=== PATIENT | female | born 1970 | race Caucasian/White ===

== ENCOUNTER 2018-10-20 21:23 | Inpatient (IN) ==
[2018-10-20 21:51] LABS: BILIRUBIN URINE NEGATIVE (NEGATIVE); BLOOD URINE NEGATIVE (NEGATIVE); CLARITY CLEAR (CLEAR); COLOR YELLOW; GLUCOSE URINE NEGATIVE (NEGATIVE); KETONE URINE NEGATIVE (NEGATIVE); LEUKOCYTES URINE 1+ (NEGATIVE); NITRITE URINE NEGATIVE (NEGATIVE); PROTEIN URINE NEGATIVE (NEGATIVE); SP GRAVITY URINE 1.005; UROBILINOGEN URINE NORMAL
[2018-10-20 21:54] LABS: URINE SOURCE CLEAN CATCH
[2018-10-20 21:57] LABS: URINE BACTERIA NEGATIVE /HFP; URINE CAST NONE SEEN /LPF; URINE CRYSTAL NONE SEEN /HPF; URINE EPITHELIAL CELLS <10 /HPF (<10); URINE RBC <10 /HPF (<10); URINE WBC <10 /HPF (<10); URINE YEAST NONE SEEN /HPF
[2018-10-20 22:55] LABS: BASO# 0.09 X1000 (0.0-0.2); BASO% 1.8 % (0.0-0.8); EOS# 0.01 X1000 (0.0-0.7); EOS% 0.2 % (0.0-10.0); HEMATOCRIT 39.8 % (37.0-47.0); HEMOGLOBIN 13.6 g/dL (12.0-16.0); LYMPH# 1.57 X1000 (1.2-3.4); LYMPH% 31.9 % (20.5-51.1); MCH 30.2 PG (27-31); MCHC 34.2 g/dL (33-37); MCV 88.2 FL (81-99); MONO# 0.76 X1000 (0.11-0.59); MONO% 15.4 % (1.7-9.3); MPV 10.2 FL (7.4-10.4); NEUT# 2.49 X1000 (1.4-6.5); NEUT% 50.7 % (42.2-75.2); PLT 214 X1000 (130-400); RBC 4.51 XMIL (4.2-5.4); RDW 16.7 % (11.5-14.5); WBC 4.92 X1000 (4.8-10.8)
[2018-10-20 23:08] LABS: AGAP 16; ALBUMIN 4.3 g/dL (3.5-5.0); ALKALINE PHOSPHATASE 82 U/L (32-104); BUN 9 mg/dL (8-22); CALCIUM 8.8 mg/dL (8.8-10.2); CHLORIDE 98 mmol/L (98-107); COSMO 276; CREATININE 0.6 mg/dL (0.5-0.9); ESTIMATED GFR > 60; GLUCOSE 88 mg/dL (70-104); GOT 174 U/L (10-30); GPT 80 U/L (10-36); POTASSIUM 3.2 mmol/L (3.5-5.1); SODIUM 139 mmol/L (136-145); TCO2 25 mmol/L (25-35); TOTAL PROTEIN 7.8 g/dL (6.3-8.3)
[2018-10-20 23:13] LABS: LIPASE 1534 U/L (13-60)
[2018-10-21] MEDS ORDERED: NS 1,000 ML IV ONE (00:18)
[2018-10-21] MEDS ORDERED: CATAPRES PO ONE (00:21)
[2018-10-21] MEDS ORDERED: LR 1,000 ML IV ONE ×2 (00:24→00:27)
--- NOTE | 2018-10-21 00:27 | PROVIDER DOCUMENTATION ---
This chart was entered by Fausto Medellin Scribe, acting as scribe for Dolly Lyons CRNP. HPI-Abdominal Pain/GI Problem - General Chief Complaint: Abdominal Pain Stated Complaint: BP PROBLEMS Time Seen by Provider: 10/20/18 23:37 Source: patient Allergies/Adverse Reactions: Patient Allergies Allergy/AdvReac Type Severity Reaction Status Date / Time No Known Allergies Allergy Verified 07/22/17 11:18 Home Medications: Home Medication List Medication Instructions Recorded Confirmed Last Taken Type Butalbital/APAP/Caffeine [Fioricet] 1 each PO Q4H PRN PRN #20 tablet 08/01/17 Unknown Rx Duloxetine [Cymbalta] 60 mg PO DAILY 08/01/17 08/01/17 Unknown History LISINOpril [Prinivil] 10 mg PO DAILY 08/01/17 08/01/17 Unknown History Lorazepam [Ativan] 0.5 mg PO QHS 08/01/17 08/01/17 Unknown History Omeprazole [Prilosec] 40 mg PO 08/01/17 Unknown History Potassium Chloride 10 meq PO DAILY #90 tablet.er 08/01/17 Unknown Rx - History of Present Illness-ABD Nature of Presenting Problems: Pt is a 48 y/o F presents to the ED with epigastric pain into her back with some nausea for a week. She report a lack of appetite. She reports drinking daily. Abdominal Pain Onset Location: reports: epigastric Pain Radiation: reports: back Quality of Pain: reports: aching Severity in ED: reports: moderate, severe Onset/Duration: reports: 1 week ago Timing: reports: still present Activities at Onset: reports: none Exposure to sick contacts?: No Modifying Factors: improves with: nothing Associated Symptoms: reports: back/neck pain, nausea. denies: sinus congestion/drainage Review of Systems - Adult - REVIEW OF SYSTEMS - ADULT Constitutional: denies: chills, fever Eyes: reports: no symptoms reported Ears, Nose, Mouth & Throat: reports: no symptoms reported Cardiovascular: reports: no symptoms reported Respiratory: reports: no symptoms reported Gastrointestinal: reports: abdominal pain, nausea. denies: diarrhea, vomiting Genitourinary: reports: no symptoms reported Musculoskeletal: reports: back pain. denies: neck pain Integumentary: reports: no symptoms reported Neurological: denies: dizziness/vertigo, headache/migraines Psychiatric: reports: no symptoms reported Endocrine: reports: no symptoms reported Hematologic/Lymphatic: reports: no symptoms reported Allergic/Immunologic: reports: no symptoms reported All Other Systems: Reviewed and Negative Past History - Adult - PAST MEDICAL HISTORY-ADULT Review of Records: reports: Old Records Reviewed, Nursing Assessment Review, Medications Reviewed Major Childhood Illnesses: reports: denies history Cardiovascular: reports: HTN Respiratory: reports: denies history Gastrointestinal: reports: GERD Obstetrical/Gynecological: reports: denies history Genitourinary: reports: denies history Musculoskeletal: reports: denies history Neurological: reports: denies history Psychiatric: reports: other (alcoholism) Endocrine/Immune: reports: denies history Other Conditions: reports: denies history - PRIOR SURGERIES/PROCEDURES Surgical/Procedure History: reports: reviewed, not pertinent, - IMMUNIZATION STATUS Childhood Immunizations: See Nurse Assessment Flu Vaccine: See Nurse Assessment - FAMILY HISTORY Family History: reviewed, not pertinent - SOCIAL HISTORY Smoking: cigarettes Substance Use: alcohol Alcohol Use Frequency: every day Number of drinks per typical drinking period:: 3-4 drinks Living Situation: family Physical Exam-General - PHYSICAL EXAM-ADULT Initial Vital Signs Reviewed: Yes - CONSTITUTIONAL General Appearance: appears well, alert, no apparent distress - EYES Eyes: PERRL/EOMI, pink conjunctivae - HEAD, EARS, NOSE, MOUTH & THROAT HENMT: moist mucous membranes, normal ENT inspection, pharynx normal - NECK Neck: non-tender, full range of motion, supple, normal inspection - RESPIRATORY Respiratory: lungs clear, normal breath sounds, no pleuratic chest pain, no respiratory distress, no accessory muscle use - CARDIOVASCULAR Cardiovascular: normal peripheral pulses, regular rate, rhythm, no edema - GASTROINTESTINAL (ABDOMEN) Abdominal Exam: normal bowel sounds, soft, tenderness (epigastric) - MUSCULOSKELETAL Back Exam: normal inspection, no CVA tenderness, no vertebral tenderness Extremity: normal range of motion, non-tender, normal gait, normal inspection - SKIN Integumentary: normal color, normal turgor, warm/dry - NEUROLOGIC Neurologic: grossly normal, no motor/sensory deficits - PSYCHIATRIC Psych/Mental Status: normal mood/affect, normal thought content, normal thought process, oriented x 3 Progress - PLAN OF CARE/RESULTS Progress/Plan/Lab Results: Vital Signs - 8 hr 10/20/18 21:30 10/20/18 23:07 Temperature 98 F Pulse Rate 82 Respiratory Rate 20 Blood Pressure 162/107 176/103 O2 Sat by Pulse Oximetry 96 Laboratory Results - last 24 hr 10/20/18 10/20/18 10/20/18 21:40 21:40 22:32 WBC RBC Hgb Hct MCV MCH MCHC RDW Std Deviation Plt Count MPV Immature Gran % (Auto) Neut % (Auto) Lymph % (Auto) [place] % (Auto) Eos % (Auto) Baso % (Auto) Immature Gran # (Auto) Neut # (Auto) Lymph # (Auto) [place] # (Auto) Eos # (Auto) Baso # (Auto) Sodium Potassium Chloride Carbon Dioxide Anion Gap BUN Creatinine Estimated GFR/1.73 m2 BUN/Creatinine Ratio Glucose Calculated Osmolality Calcium Total Bilirubin AST ALT Alkaline Phosphatase Total Protein Albumin Globulin Albumin/Globulin Ratio Amylase 372 H Lipase Urine Source CLEAN CATCH Urine Color YELLOW Urine Clarity CLEAR Urine pH 7.0 Ur Specific [place] 1.005 Urine Protein NEGATIVE Urine Ketones NEGATIVE Urine Blood NEGATIVE Urine Nitrite NEGATIVE Urine Bilirubin NEGATIVE Urine Urobilinogen NORMAL Urine Microscopic RBC <10 Urine WBC 1+ A Urine Microscopic WBC <10 Ur Epithelial Cells <10 Urine Crystals NONE SEEN Urine Bacteria NEGATIVE Urine Casts NONE SEEN Urine Yeast NONE SEEN Urine Glucose NEGATIVE Urine Test NEGATIVE 10/20/18 10/20/18 22:32 22:32 WBC 4.92 RBC 4.51 Hgb 13.6 Hct 39.8 MCV 88.2 MCH 30.2 MCHC 34.2 RDW Std Deviation 16.7 H Plt Count 214 MPV 10.2 Immature Gran % (Auto) 0.0 Neut % (Auto) 50.7 Lymph % (Auto) 31.9 [place] % (Auto) 15.4 H Eos % (Auto) 0.2 Baso % (Auto) 1.8 H Immature Gran # (Auto) 0.00 Neut # (Auto) 2.49 Lymph # (Auto) 1.57 [place] # (Auto) 0.76 H Eos # (Auto) 0.01 Baso # (Auto) 0.09 Sodium 139 Potassium 3.2 L Chloride 98 Carbon Dioxide 25 Anion Gap 16 BUN 9 Creatinine 0.6 Estimated GFR/1.73 m2 > 60 BUN/Creatinine Ratio 15 Glucose 88 Calculated Osmolality 276 Calcium 8.8 Total Bilirubin 0.50 AST 174 H ALT 80 H Alkaline Phosphatase 82 Total Protein 7.8 Albumin 4.3 Globulin 4.0 Albumin/Globulin Ratio 1.0 Amylase Lipase 1534 H Urine Source Urine Color Urine Clarity Urine pH Ur Specific [place] Urine Protein Urine Ketones Urine Blood Urine Nitrite Urine Bilirubin Urine Urobilinogen Urine Microscopic RBC Urine WBC Urine Microscopic WBC Ur Epithelial Cells Urine Crystals Urine Bacteria Urine Casts Urine Yeast Urine Glucose Urine Test Orders Category Date Time Status NPO Diet 10/20/18 21:39 Active AMYLASE [CHEM] Stat Lab 10/20/18 22:32 Completed CBC WITH ELECTRONIC DIFF [HEME] Stat Lab 10/20/18 22:32 Completed COMPREHENSIVE METABOLIC PANEL [CHEM] Stat Lab 10/20/18 22:32 Completed LIPASE [CHEM] Stat Lab 10/20/18 22:32 Completed TEST-URINE [PREG] Stat Lab 10/20/18 21:[address] W/POSS RFLX CULT [URINALYSIS] Stat Lab 10/20/18 21:40 Completed URINE CULTURE [RM] Routine Lab 10/20/18 21:58 Ordered Discussed results and plan of care with patient. Patient agrees with plan and verbalizes understanding. Result Diagrams: 10/20/18 22:32 10/20/18 22:32 - CONSULTS/PCP/HOSPITALIST Notification #1 *Consult/PCP/Hospitalist*: Dr. Crenshaw Time Discussed: 00:26 Reason/Comments: Admission Consult Disposition: Admit Departure - Departure Date of Disposition Decision: 10/21/18 Time of Disposition Decision: 00:25 DIAGNOSIS: HTN (hypertension) Qualifiers: Hypertension type: essential hypertension Qualified Code(s): I10 - Essential (primary) hypertension Pancreatitis Qualifiers: Chronicity: acute Pancreatitis type: alcohol induced Acute pancreatitis complication: unspecified Qualified Code(s): K85.20 - Alcohol induced acute pancreatitis without necrosis or infection Disposition: ADMITTED INPATIENT 09 Certified Medical Emergency: Emergent Condition: Stable Referrals and Follow-Ups: Dago Che MD [Primary Care Provider] - - Critical Care Note This patient required my direct & personal management of CC.: No Attestation - Physician/ DARRELL Attestation Patient care was provided by Advanced Practice Provider:: Yes Advanced Practice Provider:: Dolly Lyons Advanced Practice Provider documentation review:: The Mid-level provider documentation, treatment plan and medical decision making was reviewed by the physician who agrees with all treatment and medical decision making by the [facility]. The physician spent face to face time with patient:: No Advanced Practice Provider documentation review:: Supervising physician onsite and consulted in the evaluation and care of this patient. The physician did not have a face to face encounter with the patient. This chart was documented by the indicated scribe, (Fausto Medellin Scribe) and accurately reflects the services I performed and decisions made by me, Dolly Lyons CRNP, as attested by the provider's signature.
[2018-10-21] MEDS: MORPHINE IV PRN ×9 (01:01→22:26)
[2018-10-21] MEDS: ZOFRAN IV PRN ×2 (01:06→08:58)
--- NOTE | 2018-10-21 02:58 | EKG Report ---
Test Performed on : 10/21/2018 02:48:10 AM Test Reason : CP Blood Pressure : / mmHG Vent. Rate : 065 BPM Atrial Rate : 065 BPM P-R Int : 186 ms QRS Dur : 082 ms QT Int : 414 ms P-R-T Axes : 053 052 063 degrees QTc Int : 430 ms Normal sinus rhythm. with sinus arrhythmia. Normal ECG When compared with ECG of 22-JUL-2017 12:06, premature ventricular complexes. are no longer present Vent. rate has decreased BY 32 BPM Confirmed by Jerod Bland MD ([id number]) on 10/23/2018 7:41:54 AM
[2018-10-21] MEDS ORDERED: PNEUMOVAX 23 IM ONE (03:18)
[2018-10-21 07:06] LABS: BASO% 2.2 % (0.0-0.8); EOS# 0.04 X1000 (0.0-0.7); EOS% 0.9 % (0.0-10.0); HEMATOCRIT 36.4 % (37.0-47.0); HEMOGLOBIN 12.5 g/dL (12.0-16.0); IMM GRAN# 0.01 X1000 (0.0-0.04); IMM GRAN% 0.2 % (0.0-0.5); LYMPH# 1.34 X1000 (1.2-3.4); LYMPH% 28.8 % (20.5-51.1); MCH 30.5 PG (27-31); MCHC 34.3 g/dL (33-37); MCV 88.8 FL (81-99); MONO# 0.77 X1000 (0.11-0.59); MONO% 16.6 % (1.7-9.3); MPV 10.4 FL (7.4-10.4); NEUT# 2.39 X1000 (1.4-6.5); NEUT% 51.3 % (42.2-75.2); PLT 213 X1000 (130-400); RDW 16.5 % (11.5-14.5); WBC 4.65 X1000 (4.8-10.8)
[2018-10-21 07:24] LABS: AMYLASE 289 U/L (20-200)
[2018-10-21 07:26] LABS: AGAP 16; ALBUMIN 3.6 g/dL (3.5-5.0); ALKALINE PHOSPHATASE 71 U/L (32-104); BUN 8 mg/dL (8-22); CALCIUM 8.3 mg/dL (8.8-10.2); CHLORIDE 101 mmol/L (98-107); COSMO 279; CREATININE 0.5 mg/dL (0.5-0.9); ESTIMATED GFR > 60; GLUCOSE 80 mg/dL (70-104); GOT 118 U/L (10-30); GPT 63 U/L (10-36); POTASSIUM 3.2 mmol/L (3.5-5.1); SODIUM 141 mmol/L (136-145); TCO2 24 mmol/L (25-35); TOTAL PROTEIN 6.7 g/dL (6.3-8.3)
--- NOTE | 2018-10-21 07:31 | Diag Imaging Result Doc PS360 ---
EXAM: CT ABD/PELVIS W/IV CONT ONLY - 10/21/2018 HISTORY: epigastric pain TECHNIQUE: CT abdomen/pelvis with intravenous contrast. No oral contrast administered per request of the referring provider. COMPARISON: None. FINDINGS: The visualized lung bases are clear. The liver is of diffusely decreased attenuation consistent with fatty infiltration. There is no focal liver lesion identified. Spleen and adrenal glands are unremarkable. There is ill-defined inflammation/edema around the pancreas. This is suspicious for acute pancreatitis. The pancreatic duct is mildly prominent. There is no pancreatic necrosis or pseudocyst identified. There are no calcified gallstones or pericholecystic inflammation identified. The bilateral kidneys enhance homogeneously except for a tiny left renal cyst. There is no hydronephrosis. There are nonspecific small retroperitoneal lymph nodes. There are no substantial enlarged lymph nodes identified. There is no evidence of bowel obstruction. The appendix is not discretely visualized, but there is no pericecal inflammation identified. There is no substantial bowel wall thickening identified. There is no abscess identified. There is no free air or substantial free fluid identified. There is no abnormal pelvic mass identified. The uterus is noted to deviate to the left which is likely long-standing. IMPRESSION: Peripancreatic inflammation/edema suspicious for acute pancreatitis. No evidence of pancreatic necrosis or pseudocyst. No calcified gallstones or pericholecystic inflammation seen. Fatty infiltration of liver. No evidence of focal liver lesion. The pond scaler radiologist provided preliminary results at 1:54 AM on 10/21/2018. This exam was performed using automated exposure control, adjustment of mA or kV according to patient size, and/or use of iterative reconstruction technique. Electronically signed by Sean Sebastian 10/21/2018 7:29 AM
[2018-10-21 07:34] LABS: LIPASE 935 U/L (13-60)
[2018-10-21] MEDS: POTASSIUM CHLORIDE 20 MEQ/SWI 20 MEQ/100 ML IVPB IV SCH ×2 (08:59→13:04)
[2018-10-21] MEDS ORDERED: NS 1,000 ML IV SCH (09:00)
[2018-10-21] MEDS ORDERED: M.V.I.-12 10 ML, FOLIC ACID 1 MG, MAGNESIUM SULFATE 1 GM, THIAMINE 100 MG in NS 1,000 ML IV SCH (09:00)
[2018-10-21] MEDS ORDERED: CATAPRES PO PRN (09:20)
[2018-10-21] MEDS: COZAAR PO SCH (09:38)
--- NOTE | 2018-10-21 09:56 | HISTORY AND PHYSICAL ---
PRIMARY CARE PHYSICIAN: Dr. Che. CHIEF COMPLAINT: Epigastric abdominal pain with nausea, vomiting and decreased appetite that has progressively worsened over the past week. HISTORY OF PRESENTING ILLNESS: This is a 48-year-old female who presents to [facility] ER with complaints of epigastric abdominal pain that radiates through into her back with some associated nausea and vomiting. She states that these have been intermittent pain over the past 6 months, but that it has worsened over the last week to the point that she has a decreased appetite and is not able to keep anything down. Her workup in the emergency room showed an amylase of 372, lipase was 1534. We did an abdomen and pelvic CT that showed an impression of a peripancreatic inflammation/edema suspicious for acute pancreatitis. She has also got a low potassium at 3.2. Her serum alcohol level on arrival was 278. She states that she drinks 2 to 3 glasses of liquor mixed with another type of beverage i.e. Coke daily and has done so for many years, and has a history of alcoholism so she is being admitted for further evaluation and treatment. PAST MEDICAL HISTORY: Hypertension, GERD, and ETOH abuse. PAST SURGICAL HISTORY: and breast augmentation. FAMILY HISTORY: Reviewed and noncontributory. SOCIAL HISTORY: She currently lives with family. Smokes 3/4 of a pack of cigarettes a day and has done so for 25 years. Again, she drinks 2 to 3 glasses of liquor mixed with another beverage daily. Denies any illicit drug use. ALLERGIES: She has no known drug allergies. HOME MEDICATIONS: 1. She takes Catapres 0.2 mg p.o. p.r.n. 2. Doxycycline 100 mg p.o. b.i.d. will be held. 3. Losartan 500 mg p.o. daily. LABORATORY DATA: White blood cell count of 4.92, hemoglobin 13.6, hematocrit 39.8, and platelets 214,000. Sodium 139, potassium 3.2, chloride 98, CO2 25, BUN of 9, creatinine 0.6, glucose 88, AST 174, ALT 80, amylase 372, and lipase 1534. Repeat this morning showed an amylase of 289 and lipase 935. Urinalysis was negative. Urine test was negative. Serum alcohol level of 278. CT of the abdomen and pelvis showed a enriqueta pancreatic inflammation/edema suspicious for acute pancreatitis. No evidence of pancreatic necrosis or pseudocyst. No calcified gallstones or pericholecystic inflammation seen. Fatty infiltration of the liver but no evidence of a focal liver lesion. REVIEW OF SYSTEMS: She denied any fever, chills, blurred vision, dizziness, chest pain, coughing, or shortness of breath. She was positive for epigastric abdominal pain that radiated through to her back, nausea, vomiting, and decreased appetite. Denied any burning or hurting with urination. PHYSICAL EXAMINATION: VITAL SIGNS: On arrival she had a temperature of 98 degrees, pulse 82, respirations 20, blood pressure 162/107, and saturating 96% on room air. GENERAL: This is a 48-year-old female who is sitting up in the bed and answers questions appropriately. HEENT: Normocephalic, atraumatic. Normal ENT inspection. Oropharynx and nares are clear. EYES: Pupils are equal, round, and reactive to light and accommodation. Extraocular movements are intact. NECK: Normal inspection. Normal range of motion. LUNGS: Clear to auscultation bilaterally with equal lung expansion and chest wall movement. ABDOMEN: Soft. There is tenderness to palpation throughout, but more specifically in the epigastric area. Bowel sounds were present x4 quadrants. MUSCULOSKELETAL: She has 5/5 strength x4 extremities. NEUROLOGICAL: The cranial nerves 2-12 appear grossly intact. ASSESSMENT: 1. Acute pancreatitis. 2. Hypokalemia. 3. Hypertension. 4. ETOH use and abuse. 5. Tobacco abuse. PLAN: She has been admitted to the medical unit. Placed on telemetry. She is NPO, but I am going to allow her to have some ice chips sparingly this morning. We will see how she does with that, and we may be able to advance her up if she is able to tolerate the ice chips. Urine culture is pending. I am going to give her banana bag of fluids daily and potassium 20 mEq IV q.4 x 2 bags this morning. Morphine 2 mg IV q.2 hours p.r.n. normal saline at 75 mL an hour, and Zofran 4 mg IV q.4 hours p.r.n. Continue home medications as previously identified. We will recheck a CBC, CMP, amylase and lipase in the morning. Dictated by SCOOTER Gutierrez for Chilo Crenshaw MD cc: SCOOTER Gutierrez MD Dr. Reddy
[2018-10-21] MEDS ORDERED: SODIUM CHLORIDE 0.9% INJ SCH (19:30)
--- NOTE | 2018-10-21 19:38 | HISTORY AND PHYSICAL ---
She came in with abdominal pain, nausea, vomiting. She has had problems off and on, she says for 6 months, but she came in for evaluation last night and lipasemia with a lipase of 1534 and amylase of 372. She is a daily drinker. Her alcohol level when she came in was 278. She drinks not quite a pint a day. Unclear, if she would have withdrawal symptoms, but she says she does do that. She drinks at least 2, I would say, 4 ounce drinks a day at the very least. She was admitted for acute pancreatitis. She does have abdominal pain on exam. Admitted for further treatment. We will continue fluids, which I am going to switch her to LR and we will continue to monitor very closely. At this point, I think this is alcoholic pancreatitis. I doubt she has any other etiology I think we have ruled out gallbladder issues and we will pursue a right upper quadrant, and triglycerides, and review her medication list. This is a [id number] encounter note with SCOOTER Gutierrez. cc: Chilo Crenshaw MD
[2018-10-21] MEDS: LR 1,000 ML IV SCH (20:10)
[2018-10-21] MEDS: PROTONIX IV SCH (20:10)
[2018-10-22] MEDS: MORPHINE IV PRN ×9 (00:52→23:53)
[2018-10-22] MEDS: ZOFRAN IV PRN (00:57)
[2018-10-22] MEDS: LR 1,000 ML IV SCH ×3 (05:54→21:01)
[2018-10-22 07:50] LABS: BASO# 0.05 X1000 (0.0-0.2); BASO% 1.1 % (0.0-0.8); EOS# 0.03 X1000 (0.0-0.7); EOS% 0.7 % (0.0-10.0); HEMATOCRIT 39.7 % (37.0-47.0); HEMOGLOBIN 13.4 g/dL (12.0-16.0); IMM GRAN# 0.01 X1000 (0.0-0.04); IMM GRAN% 0.2 % (0.0-0.5); LYMPH# 0.99 X1000 (1.2-3.4); LYMPH% 22.7 % (20.5-51.1); MCH 30.4 PG (27-31); MCHC 33.8 g/dL (33-37); MONO# 0.65 X1000 (0.11-0.59); MONO% 14.9 % (1.7-9.3); MPV 10.9 FL (7.4-10.4); NEUT# 2.64 X1000 (1.4-6.5); NEUT% 60.4 % (42.2-75.2); PLT 188 X1000 (130-400); RBC 4.41 XMIL (4.2-5.4); RDW 16.6 % (11.5-14.5); WBC 4.37 X1000 (4.8-10.8)
[2018-10-22 08:00] LABS: AMYLASE 190 U/L (20-200); LIPASE 263 U/L (13-60)
[2018-10-22] MEDS: COZAAR PO SCH (08:13)
[2018-10-22 08:18] LABS: AGAP 13; ALBUMIN 3.7 g/dL (3.5-5.0); ALKALINE PHOSPHATASE 77 U/L (32-104); BUN 5 mg/dL (8-22); CALCIUM 8.7 mg/dL (8.8-10.2); CHLORIDE 96 mmol/L (98-107); COSMO 271; CREATININE 0.5 mg/dL (0.5-0.9); ESTIMATED GFR > 60; GLUCOSE 98 mg/dL (70-104); GOT 79 U/L (10-30); GPT 50 U/L (10-36); POTASSIUM 3.4 mmol/L (3.5-5.1); SODIUM 137 mmol/L (136-145); TCO2 28 mmol/L (25-35); TOTAL PROTEIN 7.2 g/dL (6.3-8.3)
[2018-10-22] MEDS: M.V.I.-12 10 ML, FOLIC ACID 1 MG, MAGNESIUM SULFATE 1 GM, THIAMINE 100 MG in NS 1,000 ML IV SCH (09:22)
[2018-10-22] MEDS ORDERED: KLOR-CON PO ONE (11:07)
--- NOTE | 2018-10-22 11:34 | PROGRESS NOTE ---
DATE: 10/22/2018 SUBJECTIVE: The patient feels better this morning, and denies having any acute complaints. OBJECTIVE: Vital Signs: Temperature 98.1 degrees, pulse 65 per minute, respiratory rate 18 per minute, blood pressure 140/88, and pulse oximetry 96% on room air. General: Patient is alert and oriented x3. She does not appear to be in any acute distress. Cardiovascular: First and second heart sounds are audible without any murmurs or gallops. Respiratory: No respiratory distress noted. Bilateral lung air entry is good without any rales or rhonchi. Gastrointestinal: Abdomen is nondistended. It is soft and mildly tender on deep palpation in the epigastric area. No guarding or rigidity are present. Normal bowel sounds are present. DIAGNOSTIC DATA: CBC is nondiagnostic and chemistry shows potassium levels of 3.4. AST 79 and ALT 50. Amylase is 190 and lipase 263. In comparison, her lipase was 1534 two days ago. IMPRESSION: 1. Acute pancreatitis. 2. Hypertension. 3. Hypokalemia. 4. Alcohol abuse. PLAN: We are going to continue her on clear liquids and keep her on IV fluids. I am also going to give her potassium chloride 40 mEq orally to improve her hypokalemia. We will give her Zofran as needed for nausea, and keep her on pantoprazole 40 mg IV 24 hours. Her blood pressure has been stable with losartan 50 mg daily. She can probably be discharged home tomorrow if she continues to get better. cc: Janelle Lacy MD
[2018-10-22] MEDS: PROTONIX IV SCH (20:14)
[2018-10-23] MEDS: MORPHINE IV PRN ×4 (02:46→10:50)
[2018-10-23 04:49] VITALS: BP 186/97
[2018-10-23] MEDS: LR 1,000 ML IV SCH (05:30)
[2018-10-23] MEDS ORDERED: KLOR-CON PO ONE (08:32)
[2018-10-23] MEDS ORDERED: COZAAR PO SCH (09:00)
[2018-10-23] MEDS: M.V.I.-12 10 ML, FOLIC ACID 1 MG, MAGNESIUM SULFATE 1 GM, THIAMINE 100 MG in NS 1,000 ML IV SCH (09:38)
[2018-10-23] MEDS ORDERED: TYLENOL PO ONE (13:02)
--- NOTE | 2018-10-23 15:44 | DISCHARGE SUMMARY ---
ADMISSION DATE: 10/20/2018 DISCHARGE DATE: 10/23/2018 PRIMARY CARE PHYSICIAN: Dr. Che. DISCHARGE DIAGNOSES: 1. Acute pancreatitis. 2. Alcohol abuse. 3. Hypertension. 4. Hypokalemia. HOSPITAL COURSE: This is a 48-year-old female who was admitted through the emergency department here at [facility] with epigastric abdominal pain and was diagnosed as having acute pancreatitis with amylase levels of 372 and lipase levels of 1534. She was kept NPO and was given IV fluids along with banana bag since she has been a heavy alcohol drinker. Her condition gradually improved and she feels well today. She was also having hypertension that was uncontrolled because of which I increased her losartan from 50 mg a day to 100 mg a day. She is advised to take a low-fat diet at home because of her acute pancreatitis and try to avoid drinking alcohol. Since patient's condition has improved, she will be discharged home today. DISCHARGE MEDICATIONS: Losartan 100 mg orally once daily. FOLLOW-UP: She will follow with Dr. Che in approximately 1 week. CONDITION: Stable. DISPOSITION: Home. cc: MD Dr. Chinedu Mace
== END 2018-10-23 14:03 | disposition home or self-care (01) | DRG 440 ==
LOC: P.ED 21:23 → P.MEDSURG 21:24 → SUATTDRO 21:24
PROVIDERS: ATTEND Internal Medicine
CPT/HCPCS: 36415; 74177; 80053; 80307; 80320; 81001; 81025; 82055; 82150; 83690; 85025; 87088; 90732; 93005; 93010; 96374; 96375; 99285; A9270; C9113; G0480; G6040; J2270; J2405; J3411; J3475; J3480; J7030; J7120; Q9967; S0164